=== PATIENT | female | born 1975 | race Caucasian/White ===

== ENCOUNTER 2022-08-02 15:28 | Outpatient (CLI) | payer OTHER, SELFPAY ==
[2022-08-02 09:40] LABS: Cholesterol* 180 mg/dL (90-199)
[2022-08-02 09:41] LABS: HDL Cholesterol* 60 mg/dL (>=50); LDL Cholesterol Calculated 98 mg/dL (<100); Triglycerides* 112 mg/dL (40-149)
== END 2022-08-02 15:29 | disposition home or self-care (01) ==
PROVIDERS: PCP Internal Medicine; Visit Provider Internal Medicine
DX: E78.5 Hyperlipidemia, unspecified (principal)
CPT/HCPCS: 80061

== ENCOUNTER 2022-11-19 07:11 | Outpatient (CLI) | payer OTHER, SELFPAY | END 2022-11-19 07:12 | disposition home or self-care (01) | LOC: OP CLINIC 07:12 | PROVIDERS: PCP Internal Medicine; Visit Provider Surgery | DX: Z12.11 Encounter for screening for malignant neoplasm of colon (principal); K64.4 Residual hemorrhoidal skin tags | CPT/HCPCS: 45378; 99153; J2250; J2405; J3010 ==

== ENCOUNTER 2023-10-08 07:49 | Outpatient (CLI) | payer OTHER, SELFPAY | END 2023-10-08 07:50 | disposition home or self-care (01) | LOC: NFLDREF 10:43 | PROVIDERS: PCP Internal Medicine; Referring Provider Internal Medicine; Visit Provider Internal Medicine | DX: E78.2 Mixed hyperlipidemia (principal) | CPT/HCPCS: 80061 ==

== ENCOUNTER 2025-03-09 07:50 | Outpatient (CLI) | payer OTHER, SELFPAY | END 2025-03-09 07:51 | disposition home or self-care (01) | LOC: NFLDREF 03-12 00:15 | PROVIDERS: PCP Internal Medicine; Referring Provider Internal Medicine; Visit Provider Internal Medicine | DX: E78.5 Hyperlipidemia, unspecified (principal) | CPT/HCPCS: 80061 ==

== ENCOUNTER 2025-04-20 08:32 | Outpatient (CLI) | payer OTHER, SELFPAY ==
[2025-04-21 16:26] LABS: HPV Source Cervix; HPV, High Risk by TMA Not Detected
== END 2025-04-20 08:33 | disposition home or self-care (01) ==
PROVIDERS: PCP Internal Medicine; Visit Provider Obstetrics & Gynecology
DX: Z12.4 Encounter for screening for malignant neoplasm of cervix (principal); Z11.51 Encounter for screening for human papillomavirus (HPV)
CPT/HCPCS: 87624; 87625; 88141; 88142

== ENCOUNTER 2025-04-21 08:00 | Outpatient (CLI) | payer OTHER, SELFPAY ==
--- NOTE | 2025-04-21 08:15 | CRLHL7_ITS ---
For Patients: As a result of the Century Cures Act, medical imaging exams and procedure reports are released immediately into your electronic medical record. You may view this report before your referring provider. If you have questions, please contact your health care provider. INDICATION: BILATERAL SCREENING MAMMOGRAM, ASYMPTOMATIC 50 Y/O FEMALE COMPARISON: 06/29/2021, 01/19/2019, 07/03/2016 TECHNIQUE: Digital mammogram in CC and MLO projections including computer-aided detection (CAD) and tomosynthesis. BREAST COMPOSITION: There are scattered areas of fibroglandular density. FINDINGS: No suspicious findings. ASSESSMENT: BI-RADS 1 Negative RECOMMENDATION: Annual screening mammogram. A lay language report of this examination will be provided to the patient. Dictated by: Paulino Porras MD @ 04/22/2025 10:32:12 (Electronically Signed)
== END 2025-04-21 08:01 | disposition home or self-care (01) ==
LOC: MAMMO 08:01
PROVIDERS: PCP Internal Medicine; Visit Provider Internal Medicine
DX: Z12.31 Encounter for screening mammogram for malignant neoplasm of breast (principal)
CPT/HCPCS: 77063; 77067